=== PATIENT | female | born 1965 | race Caucasian/White ===

== ENCOUNTER 2018-11-02 09:47 | Outpatient (REF) | payer BC, SELFPAY ==
[2018-11-02 13:19] LABS: ALT 39 U/L (12-78); AST 23 U/L (15-37); Albumin 4.4 g/dL (3.4-5.0); Alkaline Phosphatase 73 U/L (46-116); Anion Gap 11.7 mmol/L (3-11); BUN 20 mg/dL (7-18); Bilirubin, Total 0.8 mg/dL (0.2-1.0); C-Reactive Protein 0.18 mg/dL (0.0-0.3); CO2 27.3 mmol/L (21.0-32.0); CREATININE 0.72 mg/dL (0.55-1.02); Calcium 9.4 mg/dL (8.5-10.1); Chloride 100 mmol/L (98-107); Glucose 80 mg/dL (70-100); Potassium 4.4 mmol/L (3.5-5.1); Sodium 139 mmol/L (136-145); TSH (W/Ref FT4) 0.89 uIU/mL (0.358-3.74); Total Protein 7.9 g/dL (6.4-8.2)
[2018-11-02 13:50] LABS: Cholesterol 275 mg/dL (50-200); HDL Cholesterol 101 mg/dL (40-60); LDL CHOLESTEROL 153 mg/dL (<100); Triglyceride 44 mg/dL (30-150)
[2018-11-04 11:41] LABS: IgA 224 mg/dL (85-499); Interpretation SEE COMMENTS; Tissue Transglutaminase IgA <1.2 U/mL (<4.0)
== END 2018-11-02 10:07 ==
LOC: NCHCN 09:47
PROVIDERS: PCP Nurse Practitioner Family; Visit Provider Nurse Practitioner
DX: Z00.00 Encounter for general adult medical examination without abnormal findings (principal); Z13.228 Encounter for screening for other metabolic disorders; Z13.220 Encounter for screening for lipoid disorders; Z13.29 Encounter for screening for other suspected endocrine disorder
CPT/HCPCS: 80053; 80061; 82784; 83516; 83721; 84443; 86140

== ENCOUNTER 2018-11-16 09:58 | Outpatient (CLI) | payer BC, SELFPAY ==
--- NOTE | 2018-11-16 10:56 | DI.US_ITS ---
SYMPTOMS/DIAGNOSIS: ABDOMINAL PAIN, R10.9, CHRONIC CONSTIPATED/GAS, SEVERE RIGHT SIDE PAIN X 3 DAYS, NAUSEA/VOMITING/DIARRHEA ABDOMINAL ULTRASOUND: Routine examination was performed. Comparison CT scans are 06/28/17 and 06/25/17. The aorta is of normal caliber. The IVC is unremarkable. The liver is normal in size at 14 cm. No solid hepatic masses are seen. There are multiple hepatic cysts present. These correspond to those seen on the CT scan from 2017. The gallbladder is negative. No stones, sludge or gallbladder wall thickening is seen. There is a negative sonographic Paulson's sign. The common duct is within normal limits at 0.2 cm. The pancreas is unremarkable. The spleen was not well visualized due to overlying bowel. The kidneys are grossly unremarkable. The right lower quadrant was evaluated sonographically. No sonographic evidence of an acute appendicitis is seen. The appendix was not visualized sonographically. IMPRESSION: 1. No acute abnormality. 2. Stable hepatic cysts. 3. Appendix not visualized sonographically.
== END 2018-11-16 10:18 ==
PROVIDERS: PCP Nurse Practitioner Family; Visit Provider Nurse Practitioner
DX: R10.31 Right lower quadrant pain (principal); K59.00 Constipation, unspecified; R14.3 Flatulence; R11.2 Nausea with vomiting, unspecified; R19.7 Diarrhea, unspecified; K76.89 Other specified diseases of liver
CPT/HCPCS: 76700

== ENCOUNTER 2018-11-16 11:04 | Outpatient (REF) | payer BC, SELFPAY ==
[2018-11-16 12:16] LABS: HCT 38.3 % (36.0-46.0); Mean Corp. HGB Concentration 33.9 g/dL (32.0-36.0); Mean Corpuscular Hemoglobin 30.6 pg (27.0-33.0); Mean Corpuscular Volume 90.1 fL (80-95); Mean Platelet Volume 10.2 fL (8.0-11.0); Platelet Count 265 x1000/uL (130-400); RBC 4.25 m/cumm (4.00-5.20); RBC Distribution Width 13.5 % (11.7-14.6); White Blood Cell Count 7.05 k/cumm (4.4-10.8)
[2018-11-16 12:36] LABS: Amylase 63 U/L (25-115); Lipase 74 U/L (73-393)
== END 2018-11-16 11:24 ==
LOC: NCHCN 11:04
PROVIDERS: PCP Nurse Practitioner Family; Visit Provider Nurse Practitioner
DX: R10.9 Unspecified abdominal pain (principal)
CPT/HCPCS: 83690; 85027; 82150

== ENCOUNTER 2018-12-07 00:41 | Outpatient (CLI) | payer BC, SELFPAY ==
--- NOTE | 2018-12-07 08:07 | DI.RAD_ITS ---
SYMPTOM/DIAGNOSIS: CONSTIPATION, K59.00, ENCOUNTER FOR SCREENING FOR MALIGNANT NEOPLASM OF COLON FPA: There is a large amount of stool throughout the colon suggesting constipation. No evidence of bowel obstruction is seen. The bones and joints appear intact. IMPRESSION: Large amount of retained stool raising the question of constipation.
== END 2018-12-07 01:01 ==
PROVIDERS: PCP Nurse Practitioner Family; Visit Provider Internal Medicine Gastroenterology
DX: K59.00 Constipation, unspecified (principal); Z12.11 Encounter for screening for malignant neoplasm of colon
CPT/HCPCS: 74018

== ENCOUNTER 2019-07-11 07:48 | Outpatient (CLI) | payer BC, SELFPAY ==
--- NOTE | 2019-07-11 08:17 | DI.MAMMO_ITS ---
EXAM: MG MAMMO SCREENING CLINICAL HISTORY: SCREENING,Z12.39 TECHNIQUE: Bilateral full field digital CC and MLO mammographic images were obtained with 3D tomosyn thesis and utilizing computer aided detection (CAD). COMPARISON: Available for comparison. FINDINGS: Masses/Architectural Distortion: None seen. Microcalcifications: No suspicious pleomorphic-type are seen. Skin Thickening/Nipple Retraction: None. IMPRESSION: 1. No significant interval change with no specific features of malignancy noted. 2. Unless there is more urgent need, screening mammography is recommended, as per [employer] guidelines. ACR BI-RAD Category- 1 Negative Breast Density - Category D - Extremely dense The mammogram demonstrates the patient's breast tissue is dense. Dense breast tissue is very common a nd is not abnormal but dense breast tissue can make it harder to find cancer on a mammogram. Also, de nse breast tissue may increase their breast cancer risk. This information about the result of the [facility] mogram report was provided to the patient to raise their awareness. Use this report when you speak wi th the patient about their risks for breast cancer, which includes their family history. At that time , you may recommend for more screening tests (Ultrasound or MRI) as they might be useful based on the ir risk. A negative radiographic report should not delay biopsy if a dominant or clinically suspicious mass is present. Up to ten percent of cancers are not identified on mammography. A negative report may reinforce clinical impression. Adenosis and dense breasts may obscure an underlying neoplasm. False positive reports average 6 to 10%. Patient will receive a letter notifying them of these results.
== END 2019-07-11 08:08 ==
PROVIDERS: PCP Nurse Practitioner Family; Visit Provider Nurse Practitioner
DX: Z12.31 Encounter for screening mammogram for malignant neoplasm of breast (principal)
CPT/HCPCS: 77063; 77067

== ENCOUNTER 2020-04-09 15:33 | Outpatient (REF) | payer BC, SELFPAY ==
[2020-04-12 21:31] LABS: SARS-CoV-2 RNA Undetected (Undetected); SARS-CoV-2 Specimen Source Nasopharynx
== END 2020-04-09 15:53 ==
LOC: NCHCN 15:33
PROVIDERS: PCP Nurse Practitioner Family; Visit Provider Nurse Practitioner Family
DX: R09.81 Nasal congestion (principal)
CPT/HCPCS: U0003